=== PATIENT | male | born 1950 | race Hispanic/Latino ===

== ENCOUNTER → 2019-09-23 | Outpatient (CLI) | payer MEDICARE ==
[~2019-09-23] MED LIST: AMLO5TAB9 PO; ATOR20TA65 PO; FURO20TA4 PO; ISOS30TA6 PO; LOSA1TAB42 PO; METF-444 PO; METO-391 PO; RANO500T3 PO; WARF6TAB6 PO
== END | disposition home or self-care (01) ==
LOC: SHCH 11:32
PROVIDERS: ATTEND Internal Medicine Cardiovascular Disease
DX: I73.9 Peripheral vascular disease, unspecified (principal); I25.810 Atherosclerosis of coronary artery bypass graft(s) without angina pectoris
CPT/HCPCS: 93925

== ENCOUNTER → 2022-08-10 | Outpatient (CLI) | payer OTHER, MEDICARE ==
[~2022-08-10] MED LIST changes: +AMLO-257 PO; -AMLO5TAB9 PO; -ISOS30TA6 PO; +ISOS30TA92 PO
[2022-08-10 12:46] LABS: BASOPHILS % (AUTO) 0.5 % (0.0-5.0); EOSINOPHILS % (AUTO) 0.8 % (0.0-8.0); HEMATOCRIT 48.8 % (42-54); LYMPHOCYTES % (AUTO) 14.2 % (21.0-51.0); MEAN CORPUSCULAR HEMOGLOBIN 30.4 pg (27.0-33.0); MEAN CORPUSCULAR HGB CONC 33.4 g/dL (32.0-36.0); MONOCYTES % (AUTO) 12.7 % (3.0-13.0); NEUTROPHILS % (AUTO) 71.4 % (40.0-77.0); PLATELET COUNT (AUTO) 175 K/uL (130-400); RED BLOOD CELL COUNT(AUTO) 5.36 MIL/uL (4.50-6.20); RED CELL DISTRIBUTION WIDTH 15.2 % (11.0-15.5); WHITE BLOOD COUNT (AUTO) 9.4 K/uL (4.8-10.8)
[2022-08-10 13:31] LABS: ALBUMIN 3.7 g/dL (3.5-5.0); CREATININE 1.7 mg/dL (0.5-1.5); POTASSIUM 3.6 mmol/L (3.5-5.1); THYROID STIMULATING HORMONE 2.97 uIU/mL (0.36-3.74); TOTAL PROTEIN, SERUM 6.9 g/dL (6.0-8.3)
== END | disposition home or self-care (01) ==
LOC: LAB 09:54
PROVIDERS: ATTEND Physician Assistant
DX: I48.20 Chronic atrial fibrillation, unspecified (principal); R53.83 Other fatigue
CPT/HCPCS: 36415; 80053; 83735; 84436; 84443; 84479; 85025